=== PATIENT | female | born 1990 | race Caucasian/White ===

== ENCOUNTER → 2020-03-30 09:40 | Outpatient (CLI) | payer OTHER, SELFPAY ==
--- NOTE | ~2020-03-30 | US_ITS ---
EXAMINATION: US OB <= 14 weeks fetus DATE: 03/30/2020 10:09 INDICATION: First trimester dating TECHNIQUE: Real-time pelvic transabdominal and transvaginal ultrasound was performed. COMPARISON: None. FINDINGS: The uterus measures 12.2 x 8.7 x 10.1 cm. There is an intrauterine gestational sac. There is a 3.4 x 1.5 x 0.9 cm hypoechoic area adjacent to the gestational sac. A yolk sac is identified. Fe abby heart motion is identified measuring 157 beats per minute (bpm) by M-mode Doppler. The sitka n rump length measures 5.1 cm , which correlates with an estimated gestational age of 1 weeks and 6 d ay(s) (+/-) 7 day(s). The ovaries are not visualized however no adnexal abnormality is seen. There is no free fluid in the pelvis. IMPRESSION: 1. Live intrauterine with an estimated gestational age of 11 weeks and 6 day(s) (+/-) 7 day (s) and an estimated delivery date of 10/13/2020. 2. Subchorionic hematoma. Reviewed, dictated and finalized at location A. TH CLINICIAN IMPRESSION: 1. Live intrauterine with an estimated gestational age of 11 weeks an d 6 day(s) (+/-) 7 day(s) and an estimated delivery date of 10/13/2020. 2. Subchorionic hematoma.
== END ==
PROVIDERS: Visit Provider Obstetrics & Gynecology Gynecology
DX: O46.90 Antepartum hemorrhage, unspecified, unspecified trimester (principal); Z3A.11 11 weeks gestation of pregnancy
CPT/HCPCS: 76801

== ENCOUNTER → 2020-05-11 10:08 | Outpatient (CLI) | payer OTHER, SELFPAY ==
--- NOTE | ~2020-05-11 | US_ITS ---
EXAMINATION: US OB >= 14 weeks Fetus DATE: 05/11/2020 11:05 INDICATION: Subchorionic hematoma, second trimester anatomic survey TECHNIQUE: Real-time ultrasound of the pelvis was performed. COMPARISON: None. FINDINGS: There is a single living fetus in vertex presentation. The placenta is posterior and 2.4 cm from the internal cervical os. No subchorionic hematoma is identified.. heart rate is 144 beats per suzi te (bpm). cardiac activity and movement are noted. The amniotic fluid index is subjectiv rush normal. The following anatomy was identified as normal: 4 chamber heart 3 vessel cord cord insertion kidneys urinary bladder stomach spine diaphragm ventricles cisterna magna cerebellum The following biometric data were obtained: Biparietal diameter (BPD): 4.1 cm; head circumference (HC): 14.8 cm; abdominal circumference (AC): 12 .4 cm; femur length (FL): 2.4 cm. These measurements are concordant. Estimated weight is 210 g +/- 31 g, which correlates with the 41st percentile when 10/13/2020 is used as estimated date of delivery. As single measurements, these parameters are each equal to the following estimated gestational ages w ith ranges of +/- 2 standard deviations: BPD: 18 weeks 3 days ( 16 weeks 5 days - 20 weeks 1 days). HC: 18 weeks 0 days ( 16 weeks 5 days - 19 weeks 1 days). AC: 18 weeks 0 days ( 16 weeks 0 days - 20 weeks 1 days). FL: 17 weeks 3 days ( 16 weeks 0 days - 18 weeks 6 days). estimated gestational age based solely on measurements from this exam is 18 weeks 0 days +/- 1 weeks 2 days. IMPRESSION: 1. Single living fetus in vertex presentation. 2. Estimated weight is 210 g +/- 31 g, which correlates with the 41st percentile when 10/13/2020 is used as estimated date of delivery. 3. No subchorionic hematoma identified. Reviewed, dictated and finalized at location A. CUTTER IMPRESSION: 1. Single living fetus in vertex presentation. 2. Estimated weight is 210 g +/- 31 g, which correlates with the 41st per centile when 10/13/2020 is used as estimated date of delivery. 3. No subchorionic hematoma identified.
== END ==
PROVIDERS: Visit Provider Obstetrics & Gynecology Gynecology
DX: O46.90 Antepartum hemorrhage, unspecified, unspecified trimester (principal); Z3A.18 18 weeks gestation of pregnancy
CPT/HCPCS: 76805

== ENCOUNTER 2020-07-23 07:56 | Outpatient (RCR) | payer OTHER, SELFPAY ==
[2020-07-23 10:11] LABS: Hematocrit 36.1 % (37.0-47.0); Hemoglobin 12.3 g/dL (12.0-15.0)
[2020-07-23 10:20] LABS: Glucose 1 Hour PP 50gm Dose 98 mg/dL
[2020-07-23 10:47] LABS: Vitamin D 25 Hydroxy 56.9 ng/mL
[2020-07-23 11:02] LABS: HIV 1/2 Ab P24 Ag Result Negative (Negative)
[2020-07-25] MEDS: RHO(D) IMMUNE GLOBULIN 300 MCG/2 ML SYRINGE IM (17:25)
== END 2020-10-21 23:59 | disposition home or self-care (01) ==
LOC: ANHLAB 07:56
PROVIDERS: Visit Provider Obstetrics & Gynecology Gynecology
DX: Z11.4 Encounter for screening for human immunodeficiency virus [HIV] (principal); Z29.13 Encounter for prophylactic Rho(D) immune globulin; O36.0190 Maternal care for anti-D [Rh] antibodies, unspecified trimester, not applicable or unspecified; Z3A.00 Weeks of gestation of pregnancy not specified
CPT/HCPCS: 36415; 82306; 82947; 85014; 85018; 85461; 86703; 90384; 96372; G0432; J2790

== ENCOUNTER 2020-09-30 16:48 | Outpatient (RCR) | payer OTHER, SELFPAY ==
--- NOTE | ~2020-09-30 | US_ITS ---
EXAMINATION: US OB follow up DATE: 09/30/2020 18:55 INDICATION: Small for gestational age during third trimester TECHNIQUE: Real-time ultrasound of the pelvis was performed. The interpreting radiologist was not pre sent for the study. COMPARISON: None. FINDINGS: There is a single living fetus in vertex presentation. The placenta is fundal. cardia c activity and movement are noted. heart rate is 135 beats per minute (bpm). The amniotic fluid index is 12.6 cm which is normal. The following biometric data were obtained: Biparietal diameter (BPD): 9.1 cm; head circumference (HC): 34.9 cm; abdominal circumference (AC): 33 .5 cm; femur length (FL): 7.4 cm. These measurements are concordant. Estimated weight is 3322 g +/- 498 g, which correlates with the 61st percentile when 10/15/2020 is used as estimated date of delivery. As single measurements, these parameters are each equal to the following estimated gestational ages w ith ranges of +/- 2 standard deviations: BPD: 37 weeks 0 days +/- 3 weeks 1 days. HC: 40 weeks 4 days +/- 2 weeks 5 days. AC: 37 weeks 3 days +/- 3 weeks 0 days. FL: 37 weeks 6 days +/- 3 weeks 1 days. estimated gestational age based solely on measurements from this exam is 38 weeks 2 days +/- 2 weeks 5 days. IMPRESSION: 1. Single living fetus in vertex presentation. 2. Normal amniotic fluid index. 3. Estimated weight is 3322 g +/- 498 g, which correlates with the 61st percentile when 10/16/19 21 is used as estimated date of delivery. Reviewed, dictated and finalized at location A. IMPRESSION: 1. Single living fetus in vertex presentation. 2. Normal amniotic fluid index. 3. Estimated weight is 3322 g +/- 498 g, which correlates with the 61st p ercentile when 10/15/2020 is used as estimated date of delivery.
[2020-09-30 17:46] VITALS: BP 114/65; PULSE 100
--- NOTE | 2020-09-30 19:30 | PC.NURSE ---
Dr. Fonseca notified of Ultrasound results. NST reactive. Pt may be discharged to home.
--- NOTE | 2020-09-30 20:05 | PC.NURSE ---
BPP 10/13 Pt discharged to home.
== END 2020-10-14 08:36 | disposition home or self-care (01) ==
LOC: ANHOBOP 16:48
PROVIDERS: Visit Provider Obstetrics & Gynecology Gynecology
DX: O36.5930 Maternal care for other known or suspected poor fetal growth, third trimester, not applicable or unspecified (principal); Z3A.37 37 weeks gestation of pregnancy
CPT/HCPCS: 59025; 76816

== ENCOUNTER 2020-10-10 13:01 | Inpatient (IN) | payer OTHER, SELFPAY ==
[2020-10-10] VITALS (66 sets, daily range): BP systolic 88–140; BP diastolic 51–116; PULSE 67–115; TEMP 36.2–36.8; O2SAT 97–100; BMI 29.9
[2020-10-10 14:02] LABS: Basophils Absolute Auto 0.1 K/mm3 (0.0-0.1); Basophils Percent Auto 0.5 % (0.2-1.2); Eosinophils Percent Auto 0.1 % (0-4.4); Hematocrit 37.3 % (37.0-47.0); Hemoglobin 12.9 g/dL (12.0-15.0); Immature Granulocyte Absolute 0.04 K/mm3 (0.00-0.031); Immature Granulocyte Percent A 0.4 % (0-0.5); Lymphocytes Absolute Auto 1.43 K/mm3 (0.9-3.2); Lymphocytes Percent Auto 14.3 % (18.3-44.2); Mean Corpuscular HGB Conc 34.6 g/dl (32-36); Mean Corpuscular Hemoglobin 31.1 pg (26-34); Mean Corpuscular Volume 89.9 fl (80-100); Mean Platelet Volume 11.2 fl (7.4-10.4); Monocytes Absolute Auto 0.7 K/mm3 (0.1-0.6); Monocytes Percent Auto 7.4 % (2.6-8.5); Neutrophils Absolute Auto 7.7 K/mm3 (1.3-6.7); Neutrophils Percent Auto 77.3 % (45.5-73.1); Platelet Count Result 171 k/mm3 (150-375); Red Blood Count 4.15 M/mm3 (4.2-5.4); Red Cell Distribution Width 13.5 % (11.5-14.5)
--- NOTE | 2020-10-10 14:02 | LDADM ---
This patient, Berenice Rios, was admitted to Labor/Delivery/Recovery 104 on 10/10/20 at 13:01. Plans for labor, pain management and were discussed with patient. Patient/family oriented to hospital policies and general routines including ID bracelet, bed and alarms, visiting hours, pain management, procedures, bathroom and other care routines, personal items, smoking policy, room service/diet and guest tray routines, security routines, and visiting hours. Patient/Family are encouraged to report perceived risks to care and to ask questions if they do not understand what they are told or what they should do. See OBIX for further documentation.
[2020-10-10] MEDS: LACTATED RINGERS 1,000 ML 125 ML IV CONT ×4 (14:37→22:27)
[2020-10-10] MEDS: ceFAZolin 2 GM/D5W 50 ML 2 GM/50 ML BAG IVPB (14:37)
--- NOTE | 2020-10-10 16:58 | WPDANESEPPF ---
Anes - Initial Pre Proc Eval Procedure: labor epidural Date/Time: 10/10/20 16:58 Surgeon: Aubrie Tellez MD Pre Op Diagnosis: labor pain Pre Op Diagnosis: return of membranes Patient Data Age: 29 Gender: F Height: 1.68 m Weight: 84 kg Last Vital Signs Temp 36.2 C L 10/10/20 16:15 Pulse 87 10/10/20 16:22 BP 105/69 10/10/20 16:22 Allergies Allergy/AdvReac Type Severity Reaction Status Date / Time amoxicillin Allergy Mild Rash Verified 09/25/20 13:34 Sulfa (Sulfonamide Allergy Mild pruritis Verified 09/25/20 13:34 Antibiotics) Home Medications Medication Instructions Recorded Confirmed Type cholecalciferol (vitamin D3) 25 mcg PO DAILY 09/25/20 09/25/20 History [Vitamin D3] lactobacillus combination no.8 cell 09/25/20 History [Adult Probiotic] prenat.vits,chelsi,gad-vzej-eyrcy 1 tablet 09/25/20 History [ #2] dxcmbhf-skfpyvbhf-ifvb 1 tablet PO DAILY 10/10/20 10/10/20 History Laboratory Tests 10/10/20 10/10/20 10/10/20 13:49 13:49 13:49 WBC 10.0 K/mm3 K/mm3 (4.5-10.0) RBC 4.15 M/mm3 L M/mm3 (4.2-5.4) Hgb 12.9 g/dL g/dL (12.0-15.0) Hct 37.3 % % (37.0-47.0) MCV 89.9 fl fl (80-100) MCH 31.1 pg pg (26-34) MCHC 34.6 g/dl g/dl (32-36) RDW 13.5 % % (11.5-14.5) Plt Count 171 k/mm3 k/mm3 (150-375) MPV 11.2 fl H fl (7.4-10.4) Immature Gran % (Auto) 0.4 % % (0-0.5) Neut % (Auto) 77.3 % H % (45.5-73.1) Lymph % (Auto) 14.3 % L % (18.3-44.2) [place] % (Auto) 7.4 % % (2.6-8.5) Eos % (Auto) 0.1 % % (0-4.4) Baso % (Auto) 0.5 % % (0.2-1.2) Lymph # (Auto) 1.43 K/mm3 K/mm3 (0.9-3.2) [place] # (Auto) 0.7 K/mm3 H K/mm3 (0.1-0.6) Eos # (Auto) 0.0 K/mm3 K/mm3 (0-0.3) Baso # (Auto) 0.1 K/mm3 K/mm3 (0.0-0.1) Abs Immat Gran (auto) 0.04 K/mm3 H K/mm3 (0.00-0.031) Absolute Neuts (auto) 7.7 K/mm3 H K/mm3 (1.3-6.7) Absolute Nucleated RBC 0.0 K/mm3 K/mm3 (0.0-0.012) Nucleated RBC % 0.0 % % (0.0-0.2) RPR Pending Blood Type A Negative Antibody Screen Negative Patient hx anesthesia problems: none Family hx anesthesia problems: none [facility] Family History Family History (Updated 09/25/20 @ 13:39 by Heather Spangler RN) Mother Hypertension Social History Social History Smoking status: Never smoker Substance use: never Spiritual care concerns: No Anes - Eval Final PreProcedure Day of Procedure 10/10/20 16:58 Patient weight: overweight ASA classification: II Anesthesia type and monitoring: regional epidural and standard monitoring Informed Consent: The patient's anesthetic plan and its attendant risks and benefits were discussed with the patient/family/POA. Questions were solicited and answers provided to the satisfaction of the patient/family/POA.
[2020-10-10] MEDS: OXYTOCIN 30 UNITS/NS 500 ML 30 UNITS/500 ML BAG IV CONT (17:11)
[2020-10-11] VITALS (18 sets, daily range): BP systolic 82–142; BP diastolic 49–120; PULSE 71–178; RESP 16–18; TEMP 36.3–37.3; O2SAT 96–100
--- NOTE | 2020-10-11 00:19 | WPDOBADMIT ---
Obstetrics - Admit Note Admission Note: record reviewed. No pertinent additions to the history and/or any subsequent changes in the physical findings that are not consistent with the expected course of the were found. Additions to the history and/or subsequent changes in the physical findings follow. None.Here with SROM not in labor. Pitocin per protocol and progressed over the day to Complete on my arrival at perineum.
--- NOTE | 2020-10-11 00:20 | P.PCNOB_ITS ---
OB - Delivery Note Procedure Delivery date: 10/11/20 Procedure: events: Labor Induction (for SROM) Intrapartal events: None Induction method: per pitocin protocol Delivery monitor: external FHT and external uterine Route of delivery: Laceration Description: None Specimen: No Quantitative Blood Loss (ml): 50 Anesthesia type: Epidural Disposition: floor [place] Baby Date of : 10/11/20 Weeks of gestation at delivery: 39 Infant gender: Male presentation: vertex position: Right Occiput Anterior Placenta delivery description: Spontaneous cord vessel description: 3 Vessels score one minute: 9 score five minutes: 9
--- NOTE | 2020-10-11 00:21 | P.DS_ITS ---
DS: Admitting Diagnosis Admitting Diagnosis SROM at 39 / DS: Discharge Diagnosis Discharge Diagnosis (1) 39 weeks gestation of : Code(s): Z3A.39 - 39 weeks gestation of Status: Acute (2) SROM (spontaneous rupture of membranes): Status: Acute (3) (normal spontaneous vaginal delivery): Code(s): O80 - Encounter for full-term uncomplicated delivery Status: Acute OB - DS: Summary OB Procedures : Ultrasound OB Procedures Intrapartum: Spontaneous Vag Delivery OB Procedures: : None Peripartum Data Delivery Method: Natural Vaginal Laceration Description: None complications: none Status at Discharge Functional status at discharge: independent ambulation Overall status at discharge: patient is progressing back to baseline Time Spent with Patient Time attestation: Total time spent providing and/or coordinating discharge services: DS: Data Data Completed and Pending Labs on day of discharge: Labs from last 24 hours 10/10/20 10/10/20 10/10/20 13:49 13:49 13:49 WBC 10.0 RBC 4.15 L Hgb 12.9 Hct 37.3 MCV 89.9 MCH 31.1 MCHC 34.6 RDW 13.5 Plt Count 171 MPV 11.2 H Immature Gran % (Auto) 0.4 Neut % (Auto) 77.3 H Lymph % (Auto) 14.3 L [place] % (Auto) 7.4 Eos % (Auto) 0.1 Baso % (Auto) 0.5 Lymph # (Auto) 1.43 [place] # (Auto) 0.7 H Eos # (Auto) 0.0 Baso # (Auto) 0.1 Abs Immat Gran (auto) 0.04 H Absolute Neuts (auto) 7.7 H Absolute Nucleated RBC 0.0 Nucleated RBC % 0.0 RPR Pending Blood Type A Negative Antibody Screen Negative Discharge Plan Discharge Attending physician on discharge: Aubrie Tellez Discharging Clinician: Aubrie Tellez Anticipated Discharge Date/Time: 10/13/20 00:22 Patient Disposition: Home, Self-Care Activity: may shower and pelvic rest Diet: regular Patient Instructions: Antibiotic Form Stand Alone Forms: General Discharge Information Follow-up/Referrals: Aubrie Tellez MD [Physician] - 6 Weeks Discharge Medications: New norethindrone (contraceptive) 0.35 mg tablet 0.35 mg PO DAILY Qty: 84 RF: 3 Continued #2 Tablet 1 tablet RF: 0 cholecalciferol (vitamin D3) [Vitamin D3] 25 mcg (1,000 unit) Tablet 25 mcg PO DAILY RF: 0 Adult Probiotic 3 billion cell Capsule RF: 0 gebozta-pnrnmaudl-wtbq 1 tablet PO DAILY RF: 0 Date of admission: 10/10/20 13:01 Primary Care Provider: PHYSICIAN,SULFATE DRIER MACHINE OPERATOR Admitting Provider: Aubrie Tellez Attending physician on admission: Aubrie Tellez Condition: Stable
[2020-10-11] MEDS: OXYTOCIN 30 UNITS/NS 500 ML 30 UNITS/500 ML BAG 125 UNITS IV CONT (01:02)
[2020-10-11] MEDS: MULTIVIT/MIN/PREN/FOL AC/IRON TABLET 1 TAB PO (10:11)
[2020-10-11] MEDS: WITCH HAZEL 40 PADS 1 PAD TOPICAL (10:20)
[2020-10-11] MEDS: DIBUCAINE 1% OINTMENT 30 GM TUBE 1 APPLIC TOPICAL (10:20)
[2020-10-11 10:28] LABS: Rapid Plasma Reagin Non-Reactive (NonReactive)
--- NOTE | 2020-10-11 10:31 | WPDANLDPN2 ---
Anes-Prog Note L&D Date/Time: 10/11/20 10:31 Comfortable throughout: labor and delivery Neuraxial method: epidural Epidural/Spinal procedure site: clean & non-tender Neuro status: Neuro function grossly intact. Cardiovascular status: normal Respiratory status: normal Airway patency: baseline Mental status: baseline Post-Op hydration status: normal Vital Signs: Last Vital Signs Temp 97.3 F L 10/11/20 06:55 Pulse 78 10/11/20 06:55 Resp 18 10/11/20 06:55 BP 114/56 L 10/11/20 06:55 Pulse Ox 100 10/11/20 06:55 Pain score (VAS): 0/10 I/O: Intake & Output 10/10/20 10/11/20 10/11/20 23:59 07:59 15:59 Intake Total 3050 1100 Output Total 45 Balance 3050 1055 Post-procedural complaints: none Patient feedback: Patient satisfied with anesthetic care.
--- NOTE | 2020-10-11 10:35 | PC.NURSE ---
Consult with pt., mother verbalizes she is able to independently latch infant with appropriate positioning/alignment. She denies any nipple discomfort, is feeding as required and waking infant to feed if needed. Infant is currently meeting outcomes for weight, output, jaundice and feeding frequencies. Mother denies the need for observation, stating she will call if she has any issues. Reviewed feeding cues, frequencies, duration of feedings, feeding elimination flow sheet, and signs of adequate intake. Demonstrated stimulation techniques to wake for feeding. Reviewed signs of a correct latch, effective nursing and suck swallow ratio. Infant was[able/unable] to maintain latch without discomfort to mother. Mother states she feels confident to continue effective at home. Reviewed transition to breast milk, signs of adequate intake, and engorgement/relief. Instructed to call ICP if intake/output less than required. Reviewed regular medications mother is taking. Information provided per Misti. Reviewed community resources on the [facility] website and in the Mom/Baby guide. Information on outpatient services provided. Mother has no further questions at this time.
[2020-10-11] MEDS: IBUPROFEN 600 MG TABLET PO (12:55)
[2020-10-12] MEDS: IBUPROFEN 600 MG TABLET PO ×2 (00:35→13:36)
[2020-10-12 05:06] LABS: Hematocrit 36.9 % (37.0-47.0); Hemoglobin 12.3 g/dL (12.0-15.0)
[2020-10-12] MEDS: MULTIVIT/MIN/PREN/FOL AC/IRON TABLET 1 TAB PO (07:51)
[2020-10-12 10:20] VITALS: BP 98/51; PULSE 93; RESP 18; TEMP 36.6; O2SAT 99
--- NOTE | 2020-10-12 10:42 | PM.OBPNVD ---
OB - PN: Subj Subjective Date/time seen: 10/12/20 10:42 Patient comments: no complaints and pain well controlled baby status: nursing well OB - PN: Obj Data Labs CBC & Chem 7: 10/12/20 04:25 Labs: Laboratory Results - last 24 hr 10/12/20 10/12/20 04:25 04:25 Hgb 12.3 Hct 36.9 L Blood Type A Negative Antibody Screen TNP Screen Negative Baby's Blood Type A pos Baby's MELY Negative Doses of RhIg Required 1 OB - PN A/P Plan day: 1 Plan: routine care, discharge home, follow up 6 weeks and other (micronor for bc) Time Spent With Patient Time: Total time spent is greater than 50% in coordination of care (as documented) at patient's floor/unit and/or counseling patient: Exam : Bimanual exam- vagina & uterus: other (Uterus firm, nt @U)
--- NOTE | 2020-10-12 14:40 | WPDANLDPN2 ---
Anes-Prog Note L&D Date/Time: 10/12/20 14:40 Comfortable throughout: labor and delivery Neuraxial method: epidural Epidural/Spinal procedure site: clean & non-tender Neuro status: Neuro function grossly intact. Cardiovascular status: normal Respiratory status: normal Airway patency: baseline Mental status: baseline Post-Op hydration status: normal Vital Signs: Last Vital Signs Temp 37.3 C 10/11/20 20:00 Pulse 71 10/11/20 20:00 Resp 16 10/11/20 20:00 BP 117/59 L 10/11/20 20:00 Pulse Ox 100 10/11/20 20:00 Pain score (VAS): 0 Post-procedural complaints: none Patient feedback: Patient satisfied with anesthetic care.
[2020-10-12] MEDS: RHO(D) IMMUNE GLOBULIN 300 MCG/2 ML SYRINGE IM (15:38)
[2020-10-15 10:52] VITALS: BP 115/71; PULSE 74; RESP 16; TEMP 36.6; O2SAT 99
== END 2020-10-12 16:49 | disposition home or self-care (01) | DRG 807 ==
LOC: ANHLDR 10-11 00:22 → ANHOB2 10-11 03:51
PROVIDERS: Admitting Provider Obstetrics & Gynecology Gynecology; Visit Provider Obstetrics & Gynecology Gynecology
DX: O99.824 Streptococcus B carrier state complicating childbirth (principal); Z37.0 Single live birth; Z3A.39 39 weeks gestation of pregnancy
CPT/HCPCS: 36415; 85014; 85018; 85025; 85461; 86592; 86850; 86900; 86901; 90384; A9270; J0690; J2590; J2790; J2795; J7120

== ENCOUNTER 2022-03-06 09:26 | Emergency (ER) | payer OTHER, SELFPAY ==
--- NOTE | 2022-03-06 09:26 | ED.URI ---
HPI - URI/Sore Throat General Chief Complaint: Upper Respiratory Infection Stated Complaint: Sinus Congestion/Cough Time Seen by Provider: 03/06/22 09:26 Source: patient Mode of arrival: ambulatory Limitations: no limitations History of Present Illness HPI Narrative: Berenice is a 31-year-old female patient presenting to clinic today with complaints of sinus congestion and cough. She reports she began with symptoms approximately 3 weeks ago and they got better however over the last week they have gradually gotten worse. She has yellow nasal drainage. She is also coughing up yellow phlegm. States that she does have some sinus pressure and discomfort. MD elicited complaint: cough, nasal congestion and sinus pain Related Data Home Medications Medication Instructions Recorded Confirmed cholecalciferol (vitamin D3) 25 25 mcg PO DAILY 09/25/20 03/06/22 mcg (1,000 unit) tablet (Vitamin D3) fmnypse-ufhjkjszr-lwbn 1 tablet PO DAILY 10/10/20 03/06/22 levonorgestrel-ethinyl estradiol 1 tablet PO DAILY 03/06/22 03/06/22 0.1 mg-20 mcg tablet (Vienva) Allergies Allergy/AdvReac Type Severity Reaction Status Date / Time amoxicillin Allergy Mild Rash Verified 03/06/22 09:36 Sulfa (Sulfonamide Allergy Mild pruritis Verified 03/06/22 09:36 Antibiotics) Review of Systems Review of Systems: Pertinent positives per HPI. Patient denies any fever, chills, rash, headache, visual changes, dizziness, shortness of breath, chest pain, palpitations, nausea, vomiting, diarrhea, constipation, abdominal pain, or any urinary issues. PMFSH Family History Family History Mother Hypertension Social History Social History Smoking status: Never smoker Substance use: never Spiritual care concerns: No Comments At the time of my signature, I reviewed and agree with the nursing past medical, surgical, social, and family history. There is no relevant family history pertinent to the patient complaint. Exam Narrative: General: Well-developed, well nourished, in no apparent distress Head: Normocephalic, atraumatic Eyes: Pupils equally round and reactive to light bilaterally, EOM intact, sclera and conjunctive clear, no discharge, lids normal Ears: TMs intact and clear, ear canals clear, no drainage, grossly hearing normal. Nose: Nares patent, yellow nasal discharge, moderate inflammation, no sinus tenderness. Mouth: Oral pharynx without lesions or masses, good dentition, MMM. postnasal drip Neck: Supple, trachea midline, no enlargement of anterior or posterior cervical nodes, no thyroid masses or goiter palpable. Cardio: Regular rate and rhythm, s1 and s2 normal, no murmur appreciated. Resp: Clear to auscultation bilaterally, no rhonchi, rales, wheezing or rubs Course Course Emergency Course: Portions of this record may have been created with voice recognition software. Level of Care: Express Care Visit Vital Signs Vital signs: Vital Signs Temperature 36.3 C L 03/06/22 09:31 Pulse Rate 91 03/06/22 09:31 Respiratory Rate 18 03/06/22 09:31 Blood Pressure 120/76 03/06/22 09:31 Pulse Oximetry 100 03/06/22 09:31 Oxygen Delivery Room Air 03/06/22 09:31 Temperature 36.3 C L 03/06/22 09:31 Pulse Rate 91 03/06/22 09:31 Respiratory Rate 18 03/06/22 09:31 Blood Pressure 120/76 03/06/22 09:31 Pulse Oximetry 100 03/06/22 09:31 Oxygen Delivery Room Air 03/06/22 09:31 Vital signs reviewed MDM - URI/Sore Throat MDM Narrative Medical decision making narrative: At the time of visit patient is resting comfortably on the exam table. I suspect patient has acute bacterial rhinosinusitis. Prescription for cefdinir and prednisone was sent to the pharmacy. Patient is so I cannot place her on doxycycline so is explained the risk of cefdinir with penicillin eusebia
[2022-03-06 09:31] VITALS: BP 120/76; PULSE 91; RESP 18; TEMP 36.3; O2SAT 100
== END 2022-03-06 09:45 | disposition home or self-care (01) ==
LOC: EXPBETH 09:28
PROVIDERS: Emergency Provider Nurse Practitioner Family
DX: J01.90 Acute sinusitis, unspecified (principal)
CPT/HCPCS: 99213; G0463

== ENCOUNTER 2022-05-15 16:37 | Emergency (ER) | payer OTHER, SELFPAY ==
[2022-05-15 16:41] VITALS: BP 110/76; PULSE 138; RESP 16; TEMP 37.9; O2SAT 98
--- NOTE | 2022-05-15 17:00 | ED.URI ---
HPI - URI/Sore Throat General Chief Complaint: Upper Respiratory Infection Stated Complaint: cold/flu Time Seen by Provider: 05/15/22 16:50 Source: patient Mode of arrival: ambulatory Limitations: no limitations History of Present Illness HPI Narrative: Berenice is a 31-year-old female patient presenting to the clinic today with complaints of sore throat, headache, fever, chills, body aches and congestion times 2 days. She denies any known exposure to anyone with COVID, flu, or strep. She denies any chest pain or shortness of breath MD elicited complaint: fever, cough, sore throat, rhinorrhea, nasal congestion and other (Headache) Related Data Home Medications Medication Instructions Recorded Confirmed levonorgestrel-ethinyl estradiol 1 tablet PO DAILY 03/06/22 05/15/22 0.1 mg-20 mcg tablet (Vienva) Allergies Allergy/AdvReac Type Severity Reaction Status Date / Time amoxicillin Allergy Mild Rash Verified 05/15/22 16:47 Sulfa (Sulfonamide Allergy Mild pruritis Verified 05/15/22 16:47 Antibiotics) Review of Systems Review of Systems: Pertinent positives per HPI. Patient denies any rash, visual changes, dizziness, shortness of breath, chest pain, palpitations, nausea, vomiting, diarrhea, constipation, abdominal pain, or any urinary issues. PMFSH Family History Family History Mother Hypertension Social History Social History Smoking status: Never smoker Substance use: never Spiritual care concerns: No Comments At the time of my signature, I reviewed and agree with the nursing past medical, surgical, social, and family history. There is no relevant family history pertinent to the patient complaint. Exam Narrative: General: Well-developed, well nourished, in no apparent distress Head: Normocephalic, atraumatic Eyes: Pupils equally round and reactive to light bilaterally, EOM intact, sclera and conjunctive clear, no discharge, lids normal Ears: TMs intact and dull, ear canals clear, no drainage, grossly hearing normal. Nose: Nares patent, clear nasal discharge, no inflammation, no sinus tenderness. Mouth: Oral pharynx without lesions or masses, good dentition, MMM. Oropharynx red with bilateral tonsillar enlargement Neck: Supple, trachea midline, enlargement of anterior cervical nodes, no thyroid masses or goiter palpable. Cardio: Regular rate and rhythm, s1 and s2 normal, no murmur appreciated. Resp: Clear to auscultation bilaterally, no rhonchi, rales, wheezing or rubs Course Course Emergency Course: Portions of this record may have been created with voice recognition software. Level of Care: Express Care Visit Vital Signs Vital signs: Vital Signs Temperature 37.9 C H 05/15/22 16:41 Pulse Rate 138 H 05/15/22 16:41 Respiratory Rate 16 05/15/22 16:41 Blood Pressure 110/76 05/15/22 16:41 Pulse Oximetry 98 05/15/22 16:41 Oxygen Delivery Room Air 05/15/22 16:41 Temperature 37.9 C H 05/15/22 16:41 Pulse Rate 138 H 05/15/22 16:41 Respiratory Rate 16 05/15/22 16:41 Blood Pressure 110/76 05/15/22 16:41 Pulse Oximetry 98 05/15/22 16:41 Oxygen Delivery Room Air 05/15/22 16:41 Vital signs reviewed MDM - URI/Sore Throat MDM Narrative Medical decision making narrative: At the time of visit patient is resting comfortably on exam table. Strep screen was obtained and was negative. COVID testing was obtained and negative in the clinic today. I suspect patient has URI/pharyngitis/viral syndrome. Supportive measures were discussed with the patient she voiced understanding discharge instructions agrees to treatment plan. Strep will be sent for culture Differential Diagnosis Differential diagnosis: Likely upper respiratory infection, sinusitis, viral infection, bronchitis, influenza, pharyngitis and other (COVID) Lab Data Labs: Lab Re
== END 2022-05-15 17:21 | disposition home or self-care (01) ==
PROVIDERS: Emergency Provider Nurse Practitioner Family; PCP Emergency Medicine
DX: B34.9 Viral infection, unspecified (principal); J02.9 Acute pharyngitis, unspecified; Z20.822 Contact with and (suspected) exposure to COVID-19
CPT/HCPCS: 87081; 87426; 87880; 99213; C9803; G0463

== ENCOUNTER 2022-05-18 11:29 | Emergency (ER) | payer OTHER, SELFPAY ==
--- NOTE | 2022-05-18 11:34 | ED.URI ---
HPI - URI/Sore Throat General Chief Complaint: Upper Respiratory Infection Stated Complaint: congestion ears head Time Seen by Provider: 05/18/22 11:35 Source: patient and RN notes reviewed Mode of arrival: ambulatory Limitations: no limitations History of Present Illness HPI Narrative: 31-year-old female presents with concern for worsening nasal congestion, rhinorrhea, ear pain, sore throat. Reports symptoms started about 5 days ago. Reports she was seen here 3 days ago and has since been taking Sudafed, nasal rinses, Flonase without relief. MD elicited complaint: sore throat and nasal congestion Related Data Home Medications Medication Instructions Recorded Confirmed levonorgestrel-ethinyl estradiol 1 tablet PO DAILY 03/06/22 05/18/22 0.1 mg-20 mcg tablet (Vienva) Allergies Allergy/AdvReac Type Severity Reaction Status Date / Time amoxicillin Allergy Mild Rash Verified 05/18/22 11:36 Sulfa (Sulfonamide Allergy Mild pruritis Verified 05/18/22 11:36 Antibiotics) Review of Systems Review of Systems: CONSTITUTIONAL: Reports malaise. Denies chills, sweats, or fever. EYES: Denies visual changes, redness, or discharge. ENT: Reports rhinorrhea, congestion, sinus pain, otalgia and sore throat. CARDIOVASCULAR: Denies chest pain, palpitations, or edema. RESPIRATORY: Reports cough. Denies dyspnea. GASTROINTESTINAL: Denies abdominal pain, nausea, vomiting, diarrhea SKIN: Denies rash or itching. MUSCULOSKELETAL: Denies myalgia. All systems reviewed & are unremarkable except as noted in HPI and below PMFSH Family History Family History Mother Hypertension Social History Social History Smoking status: Never smoker Substance use: never Spiritual care concerns: No Comments At time of signature, agree with nursing past medical, surgical, social and family history. There is no relevant family history pertinent to the presenting complaint Exam Narrative: GENERAL: Nontoxic-appearing and in no acute distress. HEAD: Normocephalic EYES: PERRLA, conjunctivae clear ENT: Nares clear, turbinates edematous and erythematous, clear discharge. Mucous membranes moist. TM pearly macias with dull light reflex bilaterally; no tragal tenderness. Oropharynx erythematous without lesions. Tonsils enlarged with exudate, no drooling, no hoarseness, no trismus, uvula midline. NECK: Supple. No lymphadenopathy CHEST: Clear to auscultation, breath sounds equal. No wheezing, rhonchi, rales, or stridor. No respiratory distress, speaks in full sentences. HEART: Regular rate and rhythm. No murmur heard. SKIN: Warm, dry, no rash. NEURO: Alert and oriented x3. PSYCH: Normal mood and affect Course Course Emergency Course: Patient is aware of diagnosis, understands and agrees to treatment plan. Anticipatory guidance given. Patient agrees to follow-up as directed and is aware of reasons to seek care at the emergency department. Portions of this record may have been created with voice recognition software Level of Care: Express Care Visit Vital Signs Vital signs: Reviewed. MDM - URI/Sore Throat MDM Narrative Medical decision making narrative: Differential diagnosis considered: [place] virus, strep pharyngitis, allergic rhinitis, upper respiratory tract infection, sinusitis, rhinosinusitis, nasopharyngitis. viral pharyngitis, otitis media, otitis externa, pneumonia, bronchitis, viral cough syndrome, viral syndrome, and influenza. Exam findings show no acute concerns or changes; patient is non-toxic appearing and is in no distress. Patient is appropriate for outpatient treatment and follow-up. Lab Data Attestation: I reviewed the patient's lab results. Critical Care Time Critical Care Time Critical Care Time: No Discharge Plan Discharge Clinical Impression: Acute tonsillitis Patient Disposition: Home, S
[2022-05-18 11:37] VITALS: BP 125/75; PULSE 96; RESP 16; TEMP 36.8; O2SAT 100
== END 2022-05-18 12:00 | disposition home or self-care (01) ==
PROVIDERS: Emergency Provider Nurse Practitioner; PCP Emergency Medicine
DX: J03.90 Acute tonsillitis, unspecified (principal)
CPT/HCPCS: 87081; 87880; 99213; G0463